=== PATIENT | male | born 1995 | race Two or more races ===

== ENCOUNTER 2020-05-09 19:00 | Emergency (ER) | payer OTHER ==
[2020-05-10] MEDS ORDERED: BACTRIM 160MG/800MG DS TAB As Ordered ONE (00:01)
[2020-05-10] MEDS ORDERED: BACTRIM 160MG/800MG DS TAB ONE (00:01)
[2020-06-23 05:06] LABS: BASO % 0.3 % (0.0-1.0); EOS # 0.1 10^3/uL (0.0-0.5); EOS % 1.8 % (0.0-3.0); HEMOGLOBIN 15.2 g/dl (13.5-17.5); LYMPH # 2.5 10^3/uL (1.5-5.0); LYMPH % 35.6 % (24.0-44.0); MEAN CORPUSCULAR HEMOGLOBIN 30.2 pg (27.0-33.0); MEAN CORPUSCULAR HGB CONC 34.5 g/dl (32.0-36.5); MEAN CORPUSCULAR VOLUME 87.5 fl (80.0-96.0); MONO # 0.7 10^3/uL (0.0-0.8); MONO % 9.5 % (0.0-5.0); NEUTROPHILS # 3.7 10^3/uL (1.5-8.5); NEUTROPHILS % 52.7 % (36.0-66.0); PLATELET COUNT, AUTOMATED 220 10^3/uL (150-450); RED BLOOD COUNT 5.03 10^6/uL (4.30-6.10); WHITE BLOOD COUNT 7.1 10^3/uL (4.0-10.0)
[2020-06-23 05:26] LABS: ERYTHROCYTE SEDIMENTATION RATE 49 mm/hr (0-15)
== END 2020-05-10 00:12 | disposition home or self-care (01) ==
LOC: M ED 19:00
DX: S69.92XA Unspecified injury of left wrist, hand and finger(s), initial encounter (principal); L08.9 Local infection of the skin and subcutaneous tissue, unspecified; W23.1XXA Caught, crushed, jammed, or pinched between stationary objects, initial encounter; Y99.1 Military activity; Z88.0 Allergy status to penicillin